=== PATIENT | male | born 1955 | race African-American/Black ===

== ENCOUNTER 2017-10-19 13:14 | Emergency (ER) | payer SELFPAY ==
[2017-10-19 13:25] VITALS: BP 131/86
--- NOTE | 2017-10-19 14:14 | ER Document Report ---
ED General - General Chief Complaint: Rash Stated Complaint: PENIAL/CHEST PAIN Time Seen by Provider: 10/19/17 13:55 Mode of Arrival: Ambulatory Information source: Patient Notes: 62-year-old male presents with complaints of a rash of 2 week duration. Patient notes history of hep C. Denies a history of diabetes. Notes it itches and keys Patient did state chest pain to triage but then immediately stated that there is no actual chest pain. denies burning with urination TRAVEL OUTSIDE OF THE [place] IN LAST 30 DAYS: No - HPI Onset: Other Onset/Duration: Persistent Quality of pain: Burning Severity: Mild Pain Level: 1 Associated symptoms: Other Exacerbated by: Denies Relieved by: Denies Similar symptoms previously: No Recently seen / treated by doctor: No - Related Data Allergies/Adverse Reactions: No Known Allergies Allergy (Verified 10/19/17 13:19) Past Medical History - Social History Smoking Status: Former Smoker Cigarette use (# per day): Yes Chew tobacco use (# tins/day): No Smoking Education Provided: No Frequency of alcohol use: Heavy Drug Abuse: None Family History: Reviewed & Not Pertinent Patient has suicidal ideation: No Patient has homicidal ideation: No Renal/ Medical History: Denies: Hx Peritoneal Dialysis - Immunizations Hx Diphtheria, Pertussis, Tetanus Vaccination: Yes Review of Systems - Review of Systems Notes: REVIEW OF SYSTEMS: CONSTITUTIONAL : Denies fever, chills, or sweats. Denies recent illness. EENT: Denies eye, ear, throat, or mouth pain or symptoms. Denies nasal or sinus congestion or discharge. Denies throat, tongue, or mouth swelling or difficulty swallowing. CARDIOVASCULAR: Denies chest pain. Denies palpitations or racing or irregular heart beat. Denies ankle edema. RESPIRATORY: Denies cough, cold, or chest congestion. Denies shortness of breath, difficulty breathing, or wheezing. GASTROINTESTINAL: Denies abdominal pain or distention. Denies nausea, vomiting , or diarrhea. Denies blood in vomitus, stools, or per rectum. Denies black, tarry stools. Denies constipation. GENITOURINARY: Denies difficulty urinating, painful urination, burning, frequency, blood in urine, or discharge. MUSCULOSKELETAL: Denies back or neck pain or stiffness. Denies joint pain or swelling. SKIN: Burning rash HEMATOLOGIC : Denies easy bruising or bleeding. LYMPHATIC: Denies swollen, enlarged glands. NEUROLOGICAL: Denies confusion or altered mental status. Denies passing out or loss of consciousness. Denies dizziness or lightheadedness. Denies headache. Denies weakness or paralysis or loss of use of either side. Denies problems with gait or speech. Denies sensory loss, numbness, or tingling. Denies seizures. PSYCHIATRIC: Denies anxiety or stress. Denies depression, suicidal ideation, or homicidal ideation. ALL OTHER SYSTEMS REVIEWED AND NEGATIVE. Dictation was performed using [employer] voice recognition software PHYSICAL EXAMINATION: GENERAL: Well-appearing, well-nourished and in no acute distress. HEAD: Atraumatic, normocephalic. EYES: Pupils equal round and reactive to light, extraocular movements intact, sclera anicteric, conjunctiva are normal. ENT: Nares patent, oropharynx clear without exudates. Moist mucous membranes. NECK: Normal range of motion, supple without lymphadenopathy LUNGS: Breath sounds clear to auscultation bilaterally and equal. No wheezes rales or rhonchi. HEART: Regular rate and rhythm without murmurs ABDOMEN: Soft, nontender, nondistended abdomen. No guarding, no rebound. No masses appreciated. Musculoskeletal: Normal range of motion, no pitting or edema. No cyanosis. NEUROLOGICAL: Cranial nerves grossly intact. Normal speech, normal gait. Normal sensory, motor exams PSYCH: Normal mood, normal affect. SKIN: Candidiasis-like rash bilateral inguinal regions pruritic slightly erythematous but no secondary signs of infection Physical Exam - Vital signs Vitals: Temp Pulse Resp BP Pulse Ox 98.5 F 75 20 131/86 H 91 L 10/19/17 13:23 10/19/17 13:23 10/19/17 13:23 10/19/17 13:23 10/19/17 13:23 Course - Re-evaluation Re-evalutation: 10/19/17 14:12 Accu-Chek was 111, patient will be treated for yeast infection will be given health department follow-up After performing a Medical Screening Examination, I estimate there is LOW risk for any life threatening rash. At this time the patient looks extremely well and there are no signs of systemic infection, however this may change at any time and the rash may change. I have reevaluated this patient multiple times and no significant life threatening changes are noted. The patient and I have discussed the diagnosis and risks, and we agree with discharging home with close follow-up with the understanding that symptoms and presentations can change. We also discussed returning to the Emergency Department immediately if new or worsening symptoms occur. We have discussed the symptoms which are most concerning (e.g., changing or worsening pain, fever, numbness, weakness, cool or painful digits) that necessitate immediate return. - Vital Signs Vital signs: Temp Pulse Resp BP Pulse Ox 98.5 F 75 20 131/86 H 91 L 10/19/17 13:23 10/19/17 13:23 10/19/17 13:23 10/19/17 13:23 10/19/17 13:23 Discharge - Discharge Clinical Impression: Candidiasis Condition: Stable Disposition: HOME, SELF-CARE Additional Instructions: Return immediately if he began having fevers or any other concerns Prescriptions: Nystatin [Mycostatin Topical Powder 15 gm] 1 applic TP BID #1 bottle Referrals: HEALTH DEPT,[facility] [NO LOCAL MD] - Follow up tomorrow
--- NOTE | 2017-10-19 16:39 | EKG REPORT ---
SEVERITY:- ABNORMAL ECG - SINUS RHYTHM LEFT ANTERIOR FASCICULAR BLOCK : Confirmed by: Naomi Wang 19-Oct-2017 16:38:38
== END 2017-10-19 14:20 | disposition home or self-care (01) ==
LOC: ER 13:14
DX: B37.2 Candidiasis of skin and nail (principal); F17.210 Nicotine dependence, cigarettes, uncomplicated
CPT/HCPCS: 82962; 93005; 93010; 99283